=== PATIENT | female | born 1975 | race American Indian/Alaskan Native ===

== ENCOUNTER 2018-04-14 16:03 | Outpatient (CLI) | payer BC ==
--- NOTE | 2018-04-15 03:57 | Magnetic Resonance Report ---
FINAL REPORT PROCEDURE: MR CERVICAL SPINE WO CON TECHNIQUE: Magnetic resonance imaging of the cervical spine was performed using standard pulse seque nces without contrast material. HISTORY: CERVICAL ROOT LESIONoutpatient COMPARISON: No prior studies are available for comparison. FINDINGS: There is straightening of the cervical spine. There are no fractures or malalignments. The brainstem and cervical cord are normal in caliber. There is no gliosis, edema or myelomalacia. C1-2: No significant abnormality. C2-3: No significant abnormality . C3-4: There is mild disc bulging. There is no spinal or foraminal stenosis.. C4-5: There is mild disc bulging. There is no spinal or foraminal stenosis.. C5-6: No significant abnormality . C6-7: No significant abnormality . C7-T1: No significant abnormality . Other: Epidural and prevertebral soft tissues are normal in thickness.. IMPRESSION: There is no acute bony abnormality. There are no fractures. There is no disc herniation or cord compr ession. The there is mild disc bulging at C3-C4 and C4-C5 without evidence of spinal stenosis.
== END 2018-04-14 16:04 | disposition home or self-care (01) ==
LOC: MRI 16:03
PROVIDERS: ATTEND Psychiatry & Neurology Neurology
DX: M50.221 Other cervical disc displacement at C4-C5 level (principal); Z90.49 Acquired absence of other specified parts of digestive tract
CPT/HCPCS: 72141